=== PATIENT | male | born 2000 | race Hispanic/Latino ===

== ENCOUNTER 2022-10-30 12:12 | Emergency (ER) | payer SELFPAY ==
[2022-10-30] VITALS (13 sets, daily range): BP systolic 95–123; BP diastolic 41–97; PULSE 54–61; RESP 14–22; TEMP 36.5–36.9; O2SAT 98–100
--- NOTE | ~2022-10-30 | CT_ITS ---
EXAMINATION: CT abdomen pelvis w con DATE: 10/30/2022 15:05 INDICATION: Right lower quadrant abdominal pain TECHNIQUE: Computed tomography (CT) of the abdomen and pelvis was performed with 100 mL Omnipaque-350 intravenous contrast. Automated exposure control and iterative reconstruction technique were employe d. The dose-length product was 424.98 mGy-cm. COMPARISON: None FINDINGS: Mild respiratory motion at the lung bases which appear clear. Heart size is normal. No pericardial or pleural effusion. Mild periportal edema in the central liver and mild intrahepatic biliary ductal di lation in segment 7 of the liver. Gallbladder and common bile duct appear normal. No evident obstruct ing masses or gallstones identified. Pancreas, spleen, bilateral adrenal glands and kidneys are fermín l. Bowels including the appendix are normal. Bladder is normal. No free intraperitoneal gas or fluid. No pathologically enlarged abdominal or pelvic lymphadenopathy. Bones are unremarkable. IMPRESSION: 1. Mild periportal edema and mild intrahepatic ductal or ductal dilation segment 7 of the liver sugge sting at least mild biliary obstruction and possible associated cholangitis. Differential for peripor landry edema would include acute hepatitis, congestive heart failure secondary to cardiac congestion, pl eural and hepatic trauma or aggressive fluid resuscitation. Correlate with liver function tests. No e vident cholelithiasis or other obstructing lesions but could consider further evaluation with right u pper quadrant ultrasound or MRCP as clinically indicated. Reviewed, dictated and finalized at [facility]. IMPRESSION: 1. Mild periportal edema and mild intrahepatic ductal or ductal dilation segmen t 7 of the liver suggesting at least mild biliary obstruction and possible asso ciated cholangitis. Differential for periportal edema would include acute hepat itis, congestive heart failure secondary to cardiac congestion, pleural and hep atic trauma or aggressive fluid resuscitation. Correlate with liver function te sts. No evident cholelithiasis or other obstructing lesions but could consider further evaluation with right upper quadrant ultrasound or MRCP as clinically i ndicated.
--- NOTE | ~2022-10-30 | US_ITS ---
US abdomen limited DATE: 10/30/2022 17:50 INDICATION: Right upper quadrant abdominal pain. Elevated transaminases. TECHNIQUE: Real-time imaging of liver, pancreas, gallbladder, Doppler analysis COMPARISON: 10/30/2022 CT abdomen pelvis FINDINGS: Normal hepatopedal portal venous flow. No hepatic space-occupying mass lesion is evident. N o gallstones or gallbladder wall thickening or pericholecystic fluid collection. The common bile duct measures 5.4 mm, normal. The pancreas is obscured by bowel gas. IMPRESSION: The pancreas is obscured; otherwise unremarkable examination Reviewed, dictated and finalized at [facility]. Reviewed, dictated and finalized at location [facility].
[2022-10-30 13:21] LABS: Basophils Percent Auto 0.3 % (0.2-1.2); Eosinophils Percent Auto 0.3 % (0-4.4); Hemoglobin 14.2 g/dL (14.0-18.0); Immature Granulocyte Absolute 0.04 K/mm3 (0.00-0.031); Immature Granulocyte Percent A 0.3 % (0-0.5); Lymphocytes Percent Auto 5.9 % (18.3-44.2); Mean Corpuscular HGB Conc 32.3 g/dl (32-36); Mean Platelet Volume 10.3 fl (7.4-10.4); Monocytes Absolute Auto 0.6 K/mm3 (0.1-0.6); Monocytes Percent Auto 5.1 % (2.6-8.5); Neutrophils Absolute Auto 10.4 K/mm3 (1.3-6.7); Neutrophils Percent Auto 88.1 % (45.5-73.1); Platelet Count Result 278 k/mm3 (150-375); Red Blood Count 4.73 M/mm3 (4.6-6.20); Red Cell Distribution Width 13.3 % (11.5-14.5); White Blood Count 11.8 K/mm3 (4.5-10.0)
[2022-10-30 13:22] LABS: Alanine Aminotransferase 119 U/L (6-50); Albumin Level 4.7 g/dL (3.5-5.1); Alkaline Phosphatase 138 U/L (38-126); Anion Gap 8 mmol/L (8-16); Aspartate Amino Transferase 154 U/L (17-59); Bilirubin,Total 1.4 mg/dL (0.2-1.3); Blood Urea Nitrogen 14 mg/dL (9-20); Calcium 9.4 mg/dL (8.4-10.2); Carbon Dioxide 27 mmol/L (22-30); Chloride 104 mmol/L (98-107); Estimated Glomerular Filt Rate > 60; Glucose 129 mg/dL (65-110); Potassium 3.7 mmol/L (3.4-5.0); Sodium 139 mmol/L (137-145)
--- NOTE | 2022-10-30 14:02 | ED.ABDPAIN ---
HPI - Abdominal Pain General Chief Complaint: Abdominal Pain Stated Complaint: Abdomen pain Time Seen by Provider: 10/30/22 13:33 History of Present Illness HPI narrative: 22-year-old male present emergency department for evaluation of right-sided abdominal pain. Patient reports the pain started this morning after eating some fried chicken. Patient has no prior history of abdominal surgeries and denies any prior history of gallbladder disease. Patient denies any other significant past medical history. Translation iPad was used. Related Data Allergies Allergy/AdvReac Type Severity Reaction Status Date / Time No Known Allergies Allergy Verified 10/30/22 12:29 Review of Systems Review of Systems: All systems reviewed & are unremarkable except as noted in HPI and below Exam Narrative: APPEARANCE: Well appearing, no pain, no distress, well-nourished. HEAD: normocephalic, atraumatic. EYES: PERRLA/EOMI, conjunctivae clear. NOSE: Normal no drainage NECK: Supple. No adenopathy, no masses. RESPIRATORY: Airway patent, respirations nonlabored. Clear to auscultation bilaterally, no rales, rhonchi, wheezing. CARDIOVASCULAR: Regular rate and rhythm without murmurs rubs or gallops. ABDOMINAL: Soft, upper abdominal tenderness to palpation MUSCULOSKELETAL: Moves all extremities. Strength/ROM intact, No edema, No calf tenderness. NEURO: Alert. Cranial nerves II through XII intact. Grossly intact SKIN: Warm, dry. Normal Color Course Course Emergency Course: 22-year-old male presented the ED for evaluation of abdominal pain. Patient was treated with IV pain medications, IV Zofran and IV fluids. Patient was updated on the plan for diagnosis and treatment. Patient did feel improved with treatment. On reexamination patient did feel improved. Patient's abdominal CT did show mild periportal edema. Ultrasound was ordered and showed no acute abnormalities. On reexamination patient denies any complaints and has no tenderness to palpation. Vital Signs Vital signs: Vital Signs Temperature 97.7 F 10/30/22 12:19 Pulse Rate 56 L 10/30/22 12:19 Respiratory Rate 14 10/30/22 12:19 Blood Pressure 95/71 L 10/30/22 12:19 Pulse Oximetry 100 10/30/22 12:19 Oxygen Delivery Room Air 10/30/22 12:19 Temperature 98.0 F 10/30/22 17:02 Pulse Rate 54 L 10/30/22 18:34 Respiratory Rate 18 10/30/22 18:34 Blood Pressure 107/93 H 10/30/22 18:34 Pulse Oximetry 100 10/30/22 18:34 Oxygen Delivery Room Air 10/30/22 12:19 MDM - Abdominal Pain Differential Diagnosis Differential diagnosis: Likely abdominal pain, acute appendicitis, calculus of kidney, constipation, diverticulitis, gastroenteritis, pancreatitis and small bowel obstruction Lab Data Attestation: I reviewed the patient's lab results. 10/30/22 13:01 10/30/22 13:03 Labs: Lab Results 10/30/22 10/30/22 10/30/22 Range/Units 13:01 13:03 13:56 WBC 11.8 H (4.5-10.0) K/mm3 RBC 4.73 (4.6-6.20) M/mm3 Hgb 14.2 (14.0-18.0) g/dL Hct 44.0 (42.0-52.0) % MCV 93.0 (80-100) fl MCH 30.0 (26-34) pg MCHC 32.3 (32-36) g/dl RDW 13.3 (11.5-14.5) % Plt Count 278 (150-375) k/mm3 MPV 10.3 (7.4-10.4) fl Immature Gran % (Auto) 0.3 (0-0.5) % Neut % (Auto) 88.1 H (45.5-73.1) % Lymph % (Auto) 5.9 L (18.3-44.2) % Brantley % (Auto) 5.1 (2.6-8.5) % Eos % (Auto) 0.3 (0-4.4) % Baso % (Auto) 0.3 (0.2-1.2) % Lymph # (Auto) 0.70 L (0.9-3.2) K/mm3 Brantley # (Auto) 0.6 (0.1-0.6) K/mm3 Eos # (Auto) 0.0 (0-0.3) K/mm3 Baso # (Auto) 0.0 (0.0-0.1) K/mm3 Abs Immat Gran (auto) 0.04 H (0.00-0.031) K/mm3 Absolute Neuts (auto) 10.4 H (1.3-6.7) K/mm3 Absolute Nucleated RBC 0.0 (0.0-0.012) K/mm3 Nucleated RBC % 0.0 (0.0-0.2) % Sodium 139 (137-145) mmol/L Potassium 3.7 (3.4-5.0) mmol/L Chloride 104 (98-107) mmol/L Carbon Dioxide 27 (22-
[2022-10-30] MEDS: HYDROmorphone HCL INJ (*CRX) 1 MG/ML SYR 0.5 MG IV PUSH (14:06)
[2022-10-30] MEDS: SODIUM CHLORIDE 0.9% IV 1,000 ML 999 ML IV CONT ×2 (14:06→15:05)
[2022-10-30] MEDS: ONDANSETRON INJ 4 MG/2 ML VIAL IV PUSH (14:07)
[2022-10-30 14:17] LABS: Appearance Urine Turbid (Clear); Bacteria Urine None Seen /hpf; Bilirubin Urine 1+ (Negative); Blood Urine Negative (Negative); Color Urine Dark Yellow (Yellow); Glucose Urine UA Negative (Negative); Ketones Urine Trace mg/dL (Negative); Leukocyte Esterase Ur Trace LEU/UL (Negative); Nitrate Urine Negative (Negative); Non Pathogenic Casts 0-2; Protein Urine 1+ mg/dL (Negative); RBC Urine 0-2 /hpf (0-2); Specific Grav Ur 1.026 (1.001-1.035); Squamous Epithelial Cell Urine None seen /hpf (Few); WBC Urine 0-5 /hpf; pH Urine 8.5 (5.0-9.0)
[2022-10-30 14:22] LABS: Add Urine Microscopic? YES
[2022-10-30 14:46] LABS: Lipase 169 U/L (23-300)
--- NOTE | 2022-10-30 16:18 | PC.NURSE ---
Pt returned from US, resting with reg resp
== END 2022-10-30 18:37 | disposition home or self-care (01) ==
PROVIDERS: Emergency Provider Emergency Medicine
DX: K80.50 Calculus of bile duct without cholangitis or cholecystitis without obstruction (principal); R10.11 Right upper quadrant pain
CPT/HCPCS: 36415; 74177; 76705; 80053; 81001; 83605; 83690; 85025; 96361; 96374; 96375; 99284; J1170; J2405; J7030; Q9967